=== PATIENT | male | born 1960 | race Caucasian/White ===

== ENCOUNTER 2019-09-25 10:16 | Outpatient (CLI) | payer OTHER, SELFPAY ==
--- NOTE | 2019-09-25 11:30 | NEURO_ITS ---
Patient Number: [id number] Impression: # Complains of dizziness, numbness of less than 8 weeks. 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 # Clinical correlation recommended. Findings suggestive of generalized neuropathy process. Nerve Conduction Studies Anti Sensory Summary Table Stim Site NR Peak (ms) P-T Amp (?V) Site1 Site2 Delta-P (ms) Dist (cm) Robbi (m/s) Left Median Anti Sensory (2-3nd Digit) Wrist 3.3 9.8 Wrist 2-3nd Digit 3.3 14.0 42 Wrist 4.4 15.3 Wrist 2-3nd Digit 3.3 14.0 42 Right Median Anti Sensory (2-3nd Digit) Wrist 3.2 17.9 Wrist 2-3nd Digit 3.2 14.0 44 Wrist 3.8 33.8 Wrist 2-3nd Digit 3.2 14.0 44 Left Radial Anti Sensory (Base 1st Digit) Wrist 2.2 16.0 Wrist Base 1st Digit 2.2 0.0 Right Radial Anti Sensory (Base 1st Digit) Wrist 2.5 9.9 Wrist Base 1st Digit 2.5 0.0 Left Sup Fibular Anti Sensory (Ant Lat Mall) 14 cm 3.9 9.9 14 cm Ant Lat Mall 3.9 16.0 41 Right Sup Fibular Anti Sensory (Ant Lat Mall) 14 cm 3.7 8.3 14 cm Ant Lat Mall 3.7 16.0 43 Left Sural Anti Sensory (Lat Mall) Calf 4.3 14.3 Calf Lat Mall 4.3 16.0 37 Right Sural Anti Sensory (Lat Mall) Calf 4.3 9.4 Calf Lat Mall 4.3 16.0 37 Left Ulnar Anti Sensory (5th Digit) NO RESPONSE Wrist NR Wrist 5th Digit 14.0 Right Ulnar Anti Sensory (5th Digit) NO RESPONSE Wrist NR Wrist 5th Digit 14.0 Motor Summary Table Stim Site NR Onset (ms) O-P Amp (mV) Site1 Site2 Delta-0 (ms) Dist (cm) Robbi (m/s) Left Median Motor (Abd Poll Brev) Wrist 4.5 3.8 Elbow Wrist 6.1 29.0 48 Elbow 10.6 3.4 Right Median Motor (Abd Poll Brev) Wrist 8.3 3.0 Elbow Wrist 5.6 29.0 52 Elbow 13.9 3.0 Left Peroneal Motor (Vastus Med) Ankle 14.1 0.6 Popit Ankle 10.5 42.0 40 Popit 24.6 0.5 Right Peroneal Motor (Vastus Med) Ankle 10.6 1.1 Popit Ankle 12.4 41.0 33 Popit 23.0 1.0 Left Tibial Motor (Abd Cardona Brev) Ankle 16.7 0.9 Knee Ankle 9.2 43.0 47 Knee 25.9 0.2 Right Tibial Motor (Abd Cardona Brev) Ankle 12.7 0.7 Knee Ankle 13.6 44.0 32 Knee 26.3 0.2 Left Ulnar Motor (Abd Dig Minimi) Wrist 5.2 4.4 A Elbow Wrist 7.8 31.0 40 A Elbow 13.0 2.7 Right Ulnar Motor (Abd Dig Minimi) Wrist 4.8 2.5 A Elbow Wrist 7.7 30.0 39 A Elbow 12.5 2.0 B Elbow Wrist 6.3 22.0 35 B Elbow 11.1 1.2 F Wave Studies NR F-Lat (ms) L-R F-Lat (ms) Left Median (Mrkrs) (Abd Poll Brev) 35.29 4.89 Right Median (Mrkrs) (Abd Poll Brev) 40.18 4.89 Left Peroneal (Mrkrs) (EDB) 74.97 5.03 Right Peroneal (Mrkrs) (EDB) 69.94 5.03 Left Tibial (Mrkrs) (Abd Hallucis) 71.46 0.00 Right Tibial (Mrkrs) (Abd Hallucis) 71.46 0.00 Left Ulnar (Mrkrs) (Abd Dig Min) 41.23 1.99 Right Ulnar (Mrkrs) (Abd Dig Min) 39.24 1.99 EMG Side Muscle Nerve Root Ins Act Fibs Amp Dur Recrt Comment Right 1stDorInt Ulnar C8-T1 Nml Nml Decr >12ms Reduced Right Ext Indicis Radial (Post Int) C7-8 Nml Nml Nml Nml Nml Right Ext Digitorum Radial (Post Int) C7-8 Nml Nml Nml Nml Nml
== END 2019-09-25 10:17 | disposition home or self-care (01) ==
PROVIDERS: Visit Provider Psychiatry & Neurology Neurology
DX: R20.2 Paresthesia of skin (principal); G62.9 Polyneuropathy, unspecified
CPT/HCPCS: 95886; 95913

== ENCOUNTER 2019-10-09 09:06 | Outpatient (CLI) | payer OTHER, SELFPAY ==
[2019-10-02 09:37] VITALS: BMI 30.7
--- NOTE | ~2019-10-09 | XR_ITS ---
EXAMINATION: XR lumbar puncture diagnostic DATE: 10/09/2019 12:12 INDICATION: Peripheral neuropathy. TECHNIQUE: The procedure including the risks, benefits, and alternatives was discussed with the patie nt. Risks discussed included spinal headache, cerebrospinal fluid leak, bleeding, and infection. The patient understood the risks and agreed to proceed. A timeout was performed to verify the patient' s name, date of , and procedure to be performed. The skin overlying the L2-L3 level was prepped and draped in usual sterile fashion. Subcutaneous 1% lidocaine was used for local anesthesia. A 20 gauge spinal needle was advanced under fluoroscopic guidance. The needle was removed and the entry s ite was cleaned and dressed. There were no immediate complications. Fluoroscopy exposure time was 0. 1 minutes. The total number of images was 1. FINDINGS: Real-time fluoroscopy demonstrates the needle at the L2-L3 level. The opening pressure was 14 cm water (Normal range is variably defined as 6-20 cm water and up to 25 cm water in obese patient s. Pressure >25 cm water is one of the modified Dandy criteria for idiopathic intracranial hypertensi on). 14.5 mL of clear, colorless fluid was collected in 4 tubes. IMPRESSION: 1. Successful fluoro-guided lumbar puncture. Reviewed, dictated and finalized at location A.
[2019-10-09 10:24] LABS: Mean Platelet Volume 9.4 fl (7.4-10.4); Platelet Count Result 415 k/mm3 (150-375)
[2019-10-09 10:28] LABS: Prothrombin Time 13.1 Seconds (11.1-14.7)
[2019-10-09 10:55] VITALS: BP 135/86; BP 140/96; PULSE 100; PULSE 86; RESP 12; RESP 20; O2SAT 93; O2SAT 96
[2019-10-09 11:28] VITALS: BP 135/86; BP 140/96; PULSE 100; PULSE 86; RESP 12; RESP 20; O2SAT 93; O2SAT 96
[2019-10-09 11:35] VITALS: BP 138/92; PULSE 79
[2019-10-09 12:14] LABS: Glucose CSF 74 mg/dL (40-70)
[2019-10-09 12:24] LABS: Total Protein CSF 120 mg/dL (12-60)
[2019-10-09 12:35] VITALS: BP 135/81; PULSE 80
[2019-10-09 13:10] LABS: Appearance CSF Clear (Clear); CSF source CSF; Color CSF Colorless (Colorless)
[2019-10-09 13:11] LABS: Lymphocytes CSF 93 % (40-80); Macrophages CSF 1; Monocytes CSF 6 % (15-45); Nucleated Cell CSF 17 /uL (0-5); Red Blood Cell CSF 25 (0-2)
[2019-10-09 13:30] VITALS: BP 144/82; PULSE 80
[2019-10-11 18:26] LABS: Herpes Simplex Type 1 DNA PCR Not Detected (Not Detected); Herpes Simplex Type 2 DNA PCR Not Detected (Not Detected); VDRL Quantitative CSF Nonreactive (Nonreactive)
[2019-10-15 01:20] LABS: Angiotensi Converting Enzy CSF 3 U/L (<=15)
[2019-10-15 14:38] LABS: Lyme Disease DNA Not detected (Not Detected); Specimen Source CSF
== END 2019-10-09 09:07 | disposition home or self-care (01) ==
PROVIDERS: Radiology Diagnostic Radiology; PCP Family Medicine Sports Medicine; Visit Provider Psychiatry & Neurology Neurology
DX: G62.9 Polyneuropathy, unspecified (principal)
CPT/HCPCS: 36415; 62328; 82164; 82945; 84157; 85049; 85610; 86592; 87070; 87529; 87801; 89051